=== PATIENT | female | born 1950 | race Caucasian/White ===

== ENCOUNTER 2023-01-15 06:31 | Day surgery (SDC) | payer MEDICARE ==
[2023-01-10 14:21] LABS: BASOPHILS # (AUTO) 0.1 X10'3 (0-0.2); BASOPHILS % (AUTO) 0.9 % (0-1); EOSINOPHILS # (AUTO) 0.1 X10'3 (0-0.9); EOSINOPHILS % (AUTO) 1.2 % (0-6); LYMPHOCYTES # (AUTO) 2.4 X10'3 (1.1-4.8); LYMPHOCYTES % (AUTO) 29.5 % (21-51); MEAN CORPUSCULAR HEMOGLOBIN 28.5 PG (27.0-31.0); MEAN CORPUSCULAR HGB CONC 33.2 g/dL (33.0-36.5); MEAN CORPUSCULAR VOLUME 85.8 FL (78-98); MEAN PLATELET VOLUME 7.3 FL (7.4-10.4); MONOCYTES # (AUTO) 0.6 X10'3 (0-0.9); MONOCYTES % (AUTO) 6.9 % (2-12); NEUTROPHILS # (AUTO) 5.1 X10'3 (1.8-7.7); NEUTROPHILS % (AUTO) 61.5 % (42-75); PRE OP HEMATOCRIT 43.9 % (35.0-45.0); PRE OP HEMOGLOBIN 14.6 g/dL (12.0-16.0); PRE OP PLATELET COUNT 256 X10'3 (140-440); RED BLOOD COUNT 5.12 X10'6 (4.20-5.60); RED CELL DISTRIBUTION WIDTH 14.9 % (11.5-14.5)
[2023-01-10 14:22] LABS: CLARITY,URINE CLEAR (Clear); COLOR,URINE YELLOW (Yellow); GLUCOSE, URINE NEGATIVE (Neg); KETONES,URINE NEGATIVE (Neg); LEUKOCYTE ESTERASE ,URINE NEGATIVE (Neg); NITRITES, URINE NEGATIVE (Neg); OCCULT BLOOD,URINE MODERATE (Neg); PH,URINE 5.5 (4.8-8.0); PROTEIN,URINE NEGATIVE (Neg); UROBILINOGEN,URINE 0.2 E.U/dL (0.2-1.0)
[2023-01-10 14:23] LABS: UA COLLECTION TYPE CLN CATCH MIDSTREAM
[2023-01-10 14:31] LABS: BACTERIA,URINE FEW /HPF (Neg); MUCUS STRANDS NONE SEEN /LPF (Neg); RBC,URINE 20-50 /HPF (0-2); SQUAMOUS EPITHELIAL CELL,UR FEW /LPF (FEW); WBC,URINE 0-4 /HPF (0-4)
[2023-01-10 14:32] LABS: ALBUMIN 4.2 G/DL (3.4-5.0); ALBUMIN/GLOBULIN RATIO 1.1 (1.1-1.5); ALKALINE PHOSPHATASE 93 IU/L (46-116); BLOOD UREA NITROGEN 21 MG/DL (7-18); BUN/CREATININE RATIO 27.6 (10.0-20.0); CALCIUM 9.6 MG/DL (8.5-10.1); CHLORIDE 109 MMOL/L (99-107); CREATININE 0.76 MG/DL (0.40-0.90); PRE OP ALT 44 U/L (30-65); PRE OP ANION GAP 6 (8-16); PRE OP AST 32 U/L (10-37); PRE OP BILIRUB, TOTAL 0.3 MG/DL (0.0-1.0); PRE OP GLUCOSE 101 MG/DL (70-104); PRE OP POTASSIUM 4.9 MMOL/L (3.4-5.1); PRE OP SODIUM 144 MMOL/L (135-145); TOTAL CARBON DIOXIDE 28.6 MMOL/L (24-32); eGFR 75 ML/MIN
[~2023-01-15] VITALS: Ht 152.4 cm; Wt 63.5 kg
[2023-01-15] VITALS (16 sets, daily range): BP systolic 126–176; BP diastolic 55–97
[~2023-01-15 06:31] MED LIST: FLAX OIL; GUAI-425 PO; METF-436 PO; NUTRITIONAL YEAST; ceFOXitin 2GM-NS 100mL ADDvant 100 ML IV ONE; famotidine 20mg tablet PO ONE; ringers solution, lacted 1,000 ML IV SCH
[2023-01-15] MEDS ORDERED: ringers solution, lacted 1,000 ML IV SCH (08:15)
[2023-01-15] MEDS ORDERED: proCHLORperazine 10 MG/2 ml inj IV PRN (08:15)
[2023-01-15] MEDS ORDERED: meperidine/PF 25mg/ml syringe IV PRN ×3 (08:15)
[2023-01-15] MEDS ORDERED: morphine 2 MG/ML inj. syringe IV PRN (08:15)
[2023-01-15] MEDS ORDERED: morphine 4 MG/ML inj SYRINge IV PRN (08:15)
[2023-01-15] MEDS ORDERED: ondansetron/PF 4mg/2ml inj IV PRN (08:15)
[2023-01-15] MEDS ORDERED: BUPIVAcaine/PF 2.5 mg/ml (0.25%) 30ml vial ONE (08:53)
[2023-01-15] MEDS ORDERED: midazolam 1 mg/ML 2ml injection ONE (09:01)
[2023-01-15] MEDS ORDERED: fentaNYL/PF 50MCG/1 ML 2ML syringe ONE (09:01)
[2023-01-15] MEDS ORDERED: rocuronium 10mg/ml inj IV ONE (09:02)
[2023-01-15] MEDS ORDERED: propofol inj 20 ML IV ONE (09:02)
[2023-01-15] MEDS ORDERED: LIDOcaine 2% (20mg/ml) 5ml vial ONE (09:05)
[2023-01-15] MEDS ORDERED: sevoflurane 250ml liquid IH ONE (09:05)
[2023-01-15] MEDS ORDERED: dexamethasone sod phosphate 10mg/ml inj ONE (09:05)
[2023-01-15] MEDS ORDERED: ondansetron/PF 4mg/2ml inj ONE (09:05)
[2023-01-15] MEDS ORDERED: neostigmine methylsulfate 1 MG/ML 10ml vial ONE (09:24)
[2023-01-15] MEDS ORDERED: glycopyrrolate 0.2mg/ml inj ONE (09:24)
[2023-01-15] MEDS ORDERED: acetaminophen 1,000mg/100ml IV 100 ML IV ONE (09:36)
--- NOTE | 2023-01-15 10:08 | NUR ---
Received from OR via [facility] TO RECOVERY ROOM 7 , accompanied by Anesthesiologist DR VICK and report given by Anesthesiolgist. PT PRESENT WITH 20G RIGHT HAND, LR RUNNING AT 100MLS/HR, 3 LAP SITES WITH LOLI CORNELL, SPO2 100% MASK 10L, VSS Addendum: 01/15/23 at 1016 by Elva Wolff RN, RN Amended: Links added.
[2023-01-15] MEDS ORDERED: traMADol 50MG tablet PO ONE (10:35)
--- NOTE | 2023-01-15 12:48 | NUR ---
ALL DISCHARGE CRITERIA HAS BEEN MET. VSS, PAIN AT A TOLERABLE LEVEL, VOIDING AND ABLE TO SAFELY AMBULATE AND TRANSFER SELF. IV TAKEN OUT WITHOUT ANY COMPLICATIONS. ALL DISCHARGE INSTRUCTIONS COVERED WITH PATIENT AND ALL QUESTIONS ANSWERED. PATIENT TAKEN OUT VIA WHEELCHAIR TO PERSONAL VEHICLE WHERE FAMILY/FRIEND DROVE PATIENT HOME. Addendum: 01/15/23 at 1258 by Elva Wolff RN, RN Amended: Links added.
== END 2023-01-15 12:48 | disposition home or self-care (01) ==
LOC: PAS 06:31
PROVIDERS: ATTEND Surgery
DX: K80.10 Calculus of gallbladder with chronic cholecystitis without obstruction (principal); E11.9 Type 2 diabetes mellitus without complications; Z87.442 Personal history of urinary calculi; M19.90 Unspecified osteoarthritis, unspecified site; F17.210 Nicotine dependence, cigarettes, uncomplicated; Z88.8 Allergy status to other drugs, medicaments and biological substances; Z79.899 Other long term (current) drug therapy; Z98.890 Other specified postprocedural states
CPT/HCPCS: 36415; 47562; 80053; 81001; 82948; 85025; 93005; J0131; J0694; J2175; J2250; J2704; J2710; J3010; J3490; J7030; J7120; Z7506; Z7508; Z7512; 88304; A4215; A4615; A4618; A6402; A6449; A7000; J1100; J2405